=== PATIENT | female | born 1995 | race Caucasian/White ===

== ENCOUNTER 2025-03-17 12:17 | Outpatient (CLI) | payer OTHER, SELFPAY ==
--- OUTSIDE RECORDS SUMMARY | 2025-03-17 12:19 | XMS_ITS | Clinical Summary ---
Author Organization [facility] Address [facility] [place] [address] Care Team Providers Care Farm Products Shipper Name Role Phone Brian Sawyer Primary Care Provider + Allergies No known active allergies Medications PREVIDENT 5000 BOOSTER PLUS 1.1 % Paste 10/11/2022 Active Active Problems Problem Noted Date Diagnosed Date Hearing loss 08/26/2009 Immunizations Immunization Administration Dates Next Due DTaP (Daptacel) 03/27/2001, 8,1997,08/06,1997 HPV4 (Gardasil) 09/15/2010,02/08/2010,02/03/2009 Hepatitis A (Havrix 14[address]) 01/08/2012 Hepatitis B (Generic: Adult) 06/28/1998,08/06/18 98,1997 Hib (PedvaxHIB)3 Dose 06/28/1998, 998,1997,05/27 MMR (MMRII) 03/27/2001,06/28/1998 Meningococcal (Menactra) 02/10/2015,02/03/2009 PFIZER COVID-19 (ORIGINAL FO RMULATION, PURPLE CAP) mRNA, LNP-S, PF, 30 MCG/0.3 ML DOSE 11/27/2020 Polio IPV (Ipol) 03/27/2001, 8,1997,05/27 Tdap (Generic) 01/16/2018,02/03/2009 Varicella (Varivax) 04/09/2007,10/06/1999 Family History Medical History Relation Comments Hypertension Father Used to take med ication but does not anymore Cancer Maternal Aunt 1 Breast Asthma Maternal Aunt 2 Cancer Maternal Aunt 2 Diagnosed with b reast cancer in 2015, has been in remission but cancer has returned amd spread to other areas of her body. in July of 2022. Drug Abuse Maternal Aunt 2 Taking unnecessa ry pain medication Anxiety Maternal Grandmother Miscarriages / Stillbirths Maternal Grandmother Asthma Maternal Uncle Miscarriages / Stillbirths Maternal Uncle Asthma Mother Doesn t have trouble with it anymore Stroke Neg Hx Relation Status Comments Father Maternal Aunt 1 Maternal Aunt 2 Maternal Grandmother Maternal Uncle Mother Social History Tobacco Use Types Packs/Day Years Used Date Smoking Tobacco: Never Smokeless Tobacco: Never Tobacco Cessation:Counseling Given: Yes Alcohol Use Standard Drinks/Week Comments Not Currently 0 (1 standard drink = 0.6 oz pure alcohol) I drink socially, but haven t had alcohol in months. 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 Gender Identity Female 10/24/2021 8:12 AM CDT Sexual Orientation Straight 10/24/2021 8: 12 AM CDT Occupation Industry Job Start Date Job End Date Not on file Not on file Not on file Not on file Last Filed Vital Signs Vital Sign Reading Time Taken Comments Blood Pressure 112/82 11/10/2024 7:35 AM CDT Pulse 54 11/10/2024 7:35 AM CDT Temperature 36.2 C (97.2 F) 11/10/2024 7:35 AM CDT Respiratory Rate 16 11/10/2024 7:35 AM CDT Oxygen Saturation 97% 11/10/2024 7:35 AM CDT Inhaled Oxygen Concentration - - Weight 57.3 kg (126 lb 6.4 oz) 11/10/2024 7:35 A M CDT Height 162.6 cm (5' 4) 11/10/2024 7:35 AM CDT Body Mass Index 21.7 11/10/2024 7:35 AM CDT Plan of Treatment Health Maintenance Due Date Last Done Comments Cervical Cancer Screening Pap Smear (Age 21 to 29) Every 3 Years 1997 Annual Physical 11/10/2025 11/10/2024, 10/21, 10/25/2021 COVID-19 Vaccine ( season) 2025 11/27/2020, 11/05/2020 Postponed from 03/23/2024 (Patient Refused) Cervical Cancer Screening 11/10/2025 Po stponed from 1997 (Going to Outside Clinic) DTaP, Tdap and Td Vaccines (8 - Td or Tdap) 01/17/2028 01/16/2018, 02/03/2009, 03/27/2001, Additional history exists Hepatitis B Vaccines Completed 06/28/1998, 1997, 1997 HPV Vaccines Completed 09/15/2010, 01/21, 02/03/2009 Meningococcal Vaccine Completed 02/10/2015, 009 Hepatitis C Completed 11/14/2021 PHQ-2 (Physician [place]) Completed 11/10/2024 Meningococcal B Vaccine Aged Out No l onger eligible based on patient's age to complete this topic Pneumococcal Vaccine: Pediatrics (0 to 5 Years) and At-Risk Patients (6 to 49 Years) Aged Out No longer eligible based on patient's age to complete this topic RSV Immunizations Under 20 Months Aged Out No longer eligible based on patient's age to complete this topic Procedures Procedure Name Priority Date/Time Associated Diagnosis Comments HEPATITIS C ANTIBODY Routine 11/14/2021 7:11 AM CDT Encounter for preventative adult health care examination Need for hepatitis C screening test from Last 3 Months or Most Recently Relevant to Health Maintenance Results * HEPATITIS C AB ([facility] ONLY) (11/14/2021 7:11 AM CDT) HEPATITIS C AB NON-REACTI VE NON-REACT DARLENE 11/14/2021 6:44 PM CDT [facility] Comment: ANTIBODIES TO HCV NOT DETECTED. DOES NOT EXCLUDE THE POSSIBILITY OF EXPOSURE TO HCV. 11/14/2021 7:11 AM CDT us Brian Sawyer DO LABORATORY Final Re sult [facility] [address] [place] [address], [place] [phone] [id number] from Last 3 Months or Most Recently Relevant to Health Maintenance [place] [address] Care Teams Farm Products Shipper Relationship Specialty Start Date End Date Brian Sawyer DO [facility] [place] [address] PCP - General FAMILY PRACTICE 10/25/21
[2025-03-17 13:24] LABS: Beta HCG Quantitative 545.80 mIU/ML
== END 2025-03-17 12:18 | disposition home or self-care (01) ==
LOC: ANHLAB 12:18
PROVIDERS: Visit Provider Obstetrics & Gynecology
DX: O20.0 Threatened abortion (principal); Z3A.00 Weeks of gestation of pregnancy not specified
CPT/HCPCS: 36415; 84702

== ENCOUNTER 2025-03-19 12:17 | Outpatient (CLI) | payer OTHER, SELFPAY ==
--- OUTSIDE RECORDS SUMMARY | 2025-03-19 12:20 | XMS_ITS | Clinical Summary ---
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 DOES NOT EXCLUDE THE POSSIBILITY OF EXPOSURE TO HCV. 11/14/2021 7:11 AM CDT us Brian Sawyer DO LABORATORY Final Re sult [facility] [address] [place] [address], [place] [phone] [id number] from Last 3 Months or Most Recently Relevant to Health Maintenance Insurance [facility] Care Teams Improvement Engineer Relationship Specialty Start Date End Date Brian Sawyer DO [facility] [place] [address] PCP - General FAMILY PRACTICE 10/25/21
[2025-03-19 14:09] LABS: Beta HCG Quantitative 264.00 mIU/ML
== END 2025-03-19 12:18 | disposition home or self-care (01) ==
LOC: ANHLAB 12:18
PROVIDERS: PCP Student in an Organized Health Care Education/Training Program; Visit Provider Obstetrics & Gynecology
DX: O20.0 Threatened abortion (principal)
CPT/HCPCS: 36415; 84702